=== PATIENT | female | born 1995 | race Caucasian/White ===

== ENCOUNTER 2025-07-21 09:22 | Outpatient (CLI) | payer OTHER ==
[2025-07-21 10:11] LABS: BASO % 0.4 % (0.1-1.2); EOS # 0.09 (0.04-0.54); EOS % 1.2 % (0.7-7.0); LYMPH # 1.97 (1.18-3.74); LYMPH % 26.3 % (19.3-53.1); MEAN PLATELET VOLUME 9.40 fl (9.4-12.4); MONO # 0.47 (0.24-0.82); MONO % 6.3 % (4.7-12.5); NEUT # 4.91 (1.56-6.13); NEUT % 65.5 % (34.0-71.1); RED CELL DISTRIBUTION WIDTH 13.1 % (11.6-14.4)
[2025-07-21 10:46] LABS: ALT/SGPT 18.0 U/L (12-78); AST/SGOT 10.0 U/L (15-37); BILIRUBIN TOTAL 1.18 mg/dL (0.3-1.2); BUN CREA RATIO 13.0 (7.0-25.0); CREATININE SERUM 0.67 mg/dL (0.55-1.02); GFR 103.34; GLOBULINA 4.1 G/DL (2.4-3.5); OSMOLALITY SERUM 289.0 MOSM/KG (275-295)
[2025-07-21 10:49] LABS: GLUCOSE FASTING 370.0 mg/dL (65-100)
== END 2025-07-21 09:27 | disposition home or self-care (01) ==
LOC: LAB 09:22
PROVIDERS: ATTEND General Practice
DX: Z34.00 Encounter for supervision of normal first pregnancy, unspecified trimester (principal)

== ENCOUNTER 2025-08-29 14:04 | Emergency (ER) | payer OTHER ==
[~2025-08-29] VITALS: Ht 162.6 cm; Wt 82.6 kg
[2025-08-29] MEDS ORDERED: METFORMIN HCL500 M4 PO (14:19)
[2025-08-29] MEDS ORDERED: LISINOPRIL10 MG PO (14:19)
[2025-08-29] MEDS ORDERED: PROZAC20 MG PO (14:20)
[2025-08-29] MEDS ORDERED: RESTORIL22.5 MG PO (14:20)
[2025-08-29] MEDS ORDERED: 0.9 % SODIUM CHLORIDE 1,000 ML IV SCH (15:15)
[2025-08-29] MEDS ORDERED: ACETAMINOPHEN 500 MG GEL..CAP PO ONE ×2 (15:15→16:54)
[2025-08-29] MEDS ORDERED: ONDANSETRON HCL 4 MG in 0.9 % SODIUM CHLORIDE 50 ML IV ONE (15:15)
[2025-08-29] MEDS ORDERED: FAMOTIDINE/PF 20 MG in 0.9 % SODIUM CHLORIDE 8 ML IV PUSH ONE (15:15)
[2025-08-29] MEDS ORDERED: ONDANSETRON HCL 2 MG/ML VIAL ONE (16:54)
[2025-08-29 17:37] LABS: BASO % 0.2 % (0.1-1.2); EOS # 0.02 (0.04-0.54); EOS % 0.3 % (0.7-7.0); LYMPH # 0.65 (1.18-3.74); LYMPH % 10.7 % (19.3-53.1); MEAN PLATELET VOLUME 9.10 fl (9.4-12.4); MONO # 0.37 (0.24-0.82); MONO % 6.1 % (4.7-12.5); NEUT # 5.03 (1.56-6.13); NEUT % 82.4 % (34.0-71.1); RED CELL DISTRIBUTION WIDTH 13.2 % (11.6-14.4)
[2025-08-29 18:05] LABS: INR 1.08
[2025-08-29 18:07] LABS: ALT/SGPT 15.0 U/L (12-78); AST/SGOT 9.0 U/L (15-37); BILIRUBIN TOTAL 2.46 mg/dL (0.3-1.2); BUN CREA RATIO 13.0 (7.0-25.0); CREATININE SERUM 0.68 mg/dL (0.55-1.02); GFR 101.59; GLOBULINA 4.1 G/DL (2.4-3.5); OSMOLALITY SERUM 284.0 MOSM/KG (275-295)
[2025-08-29 18:14] LABS: GLUCOSE FASTING 245.0 mg/dL (65-100)
[2025-08-29] MEDS ORDERED: KETOROLAC TROMETHAMINE 15 MG VIAL IU ONE (20:15)
[2025-08-29] MEDS ORDERED: MORPHINE SULFATE 4 MG/ML CARTRIDGE IV ONE (20:15)
[2025-08-29] MEDS ORDERED: KETOROLAC TROMETHAMINE 30 MG VIAL ONE (20:40)
[2025-08-29 20:47] LABS: URINE APPEARANCE Clear; URINE BILIRRUBIN Negative (NEGATIVE); URINE BLOOD Large; URINE COLOR Dark Yellow; URINE KETONE Trace (NEGATIVE); URINE LEUKOCYTE Negative; URINE NITRATE Negative; URINE PROTEIN 30 (NEGATIVE); URINE UROBILINOGEN 0.2 E.U./dl
[2025-08-29 20:52] LABS: URINE BACTERIA 1828.6 uL (0.0-1933); URINE EPITHELIAL CELLS 43.5 uL (0.0-38.8); URINE RBC 40.7 uL (0.0-20.8); URINE WBC 45.9 uL (0.0-23.2)
[2025-08-29 20:55] LABS: URINE CAST 1.02 uL (0.0-1.40); URINE GLUCOSE >=1000 MG/DL (NEGATIVE)
[2025-08-29] MEDS ORDERED: DICY20TA PO (23:26)
[2025-08-29] MEDS ORDERED: PEPCID20 MG PO (23:26)
== END 2025-08-29 23:50 | disposition home or self-care (01) ==
LOC: ER 14:04
PROVIDERS: General Practice
DX: R10.11 Right upper quadrant pain (principal); K80.20 Calculus of gallbladder without cholecystitis without obstruction; N28.1 Cyst of kidney, acquired; E11.9 Type 2 diabetes mellitus without complications; Z79.84 Long term (current) use of oral hypoglycemic drugs

== ENCOUNTER 2025-09-08 16:00 | Outpatient (CLI) | payer OTHER ==
[~2025-09-08 16:00] MED LIST: DICY20TA PO; LISINOPRIL10 MG PO; METFORMIN HCL500 M4 PO; PEPCID20 MG PO; PROZAC20 MG PO; RESTORIL22.5 MG PO
== END 2025-09-08 16:10 | disposition home or self-care (01) ==
LOC: PPH VACUNA 16:00
PROVIDERS: ATTEND Emergency Medicine Pediatric Emergency Medicine
DX: Z23 Encounter for immunization (principal)

== ENCOUNTER 2025-09-19 08:00 | Day surgery (SDC) | payer OTHER ==
[2025-09-16 09:52] VITALS: BP 139/90
[2025-09-16 10:56] LABS: BASO % 0.5 % (0.1-1.2); EOS # 0.09 (0.04-0.54); EOS % 1.4 % (0.7-7.0); LYMPH # 2.00 (1.18-3.74); LYMPH % 31.5 % (19.3-53.1); MEAN PLATELET VOLUME 9.30 fl (9.4-12.4); MONO # 0.32 (0.24-0.82); MONO % 5.0 % (4.7-12.5); NEUT # 3.90 (1.56-6.13); NEUT % 61.6 % (34.0-71.1); RED CELL DISTRIBUTION WIDTH 13.2 % (11.6-14.4)
[2025-09-16 10:58] LABS: URINE APPEARANCE Cloudy; URINE BILIRRUBIN Negative (NEGATIVE); URINE BLOOD Negative; URINE COLOR Yellow; URINE KETONE Trace (NEGATIVE); URINE LEUKOCYTE Negative; URINE NITRATE Negative; URINE PROTEIN Negative (NEGATIVE); URINE UROBILINOGEN 0.2 E.U./dl
[2025-09-16 11:02] LABS: URINE BACTERIA 5027.8 uL (0.0-1933); URINE EPITHELIAL CELLS 198.4 uL (0.0-38.8); URINE RBC 2.6 uL (0.0-20.8); URINE WBC 47.9 uL (0.0-23.2)
[2025-09-16 11:24] LABS: INR 1.03
[2025-09-16 11:26] LABS: URINE CAST 0.00 uL (0.0-1.40); URINE GLUCOSE >=1000 MG/DL (NEGATIVE)
[2025-09-16 11:27] LABS: ALT/SGPT 22.0 U/L (12-78); AST/SGOT 13.0 U/L (15-37); BILIRUBIN TOTAL 1.1 mg/dL (0.3-1.2); BUN CREA RATIO 9.0 (7.0-25.0); CREATININE SERUM 0.66 mg/dL (0.55-1.02); GFR 105.15; GLOBULINA 3.3 G/DL (2.4-3.5); OSMOLALITY SERUM 289.0 MOSM/KG (275-295)
[2025-09-16 11:28] LABS: GLUCOSE FASTING 313.0 mg/dL (65-100)
[2025-09-16 11:30] LABS: URINE YEAST FEW /hpf
[~2025-09-19] VITALS: Ht 162.6 cm; Wt 83.0 kg
[2025-09-19 08:29] LABS: BUN CREA RATIO 20.0 (7.0-25.0); CREATININE SERUM 0.55 mg/dL (0.55-1.02); GFR 129.78; GLUCOSE FASTING 178.0 mg/dL (65-100); OSMOLALITY SERUM 283.0 MOSM/KG (275-295)
[2025-09-19] MEDS ORDERED: CEFAZOLIN SODIUM 1,000 MG VIAL IV ONE (10:30)
[2025-09-19] MEDS ORDERED: SUGAMMADEX SODIUM 200 MG/2 ML VIAL IV ONE (10:45)
== END 2025-09-19 14:00 | disposition home or self-care (01) ==
LOC: CIR.AMB 08:00
PROVIDERS: ATTEND Surgery
DX: K81.1 Chronic cholecystitis (principal)

== ENCOUNTER 2025-11-14 12:15 | Emergency (ER) | payer OTHER ==
[~2025-11-14] VITALS: Ht 167.6 cm; Wt 81.6 kg
[2025-11-14 12:23] VITALS: O2SAT 100
[2025-11-14] MEDS ORDERED: 0.9 % SODIUM CHLORIDE 500 ML IV ONE (13:00)
[2025-11-14] MEDS ORDERED: LORazepam 2 MG/ML VIAL IV PUSH ONE (13:00)
[2025-11-14] MEDS ORDERED: LORazepam 2 MG/ML VIAL ONE (13:01)
[2025-11-14 13:02] LABS: BASO % 0.5 % (0.1-1.2); EOS # 0.03 (0.04-0.54); EOS % 0.3 % (0.7-7.0); LYMPH # 2.26 (1.18-3.74); LYMPH % 24.8 % (19.3-53.1); MEAN PLATELET VOLUME 9.30 fl (9.4-12.4); MONO # 0.42 (0.24-0.82); MONO % 4.6 % (4.7-12.5); NEUT # 6.32 (1.56-6.13); NEUT % 69.5 % (34.0-71.1); RED CELL DISTRIBUTION WIDTH 13.3 % (11.6-14.4)
[2025-11-14 13:19] VITALS: BP 146/90
[2025-11-14 13:25] LABS: BUN CREA RATIO 10.0 (7.0-25.0); CREATININE SERUM 0.83 mg/dL (0.55-1.02); GFR 80.18; OSMOLALITY SERUM 287.0 MOSM/KG (275-295)
[2025-11-14 13:26] LABS: GLUCOSE FASTING 333.0 mg/dL (65-100)
[2025-11-14] MEDS ORDERED: ACETAMINOPHEN 500 MG GEL..CAP PO ONE (15:08)
== END 2025-11-14 15:55 | disposition home or self-care (01) ==
LOC: ER 12:15
PROVIDERS: Emergency Medicine
DX: F41.0 Panic disorder [episodic paroxysmal anxiety] (principal); E11.65 Type 2 diabetes mellitus with hyperglycemia; Z79.84 Long term (current) use of oral hypoglycemic drugs